=== PATIENT | female | born 1950 | race Caucasian/White ===

== ENCOUNTER 2021-11-05 05:24 | Outpatient (CLI) | payer MEDICARE | END 2021-11-05 05:25 | disposition EMS.NT | LOC: EMS 05:24 | DX: R07.89 Other chest pain (principal); R06.02 Shortness of breath; R29.0 Tetany ==

== ENCOUNTER 2022-07-16 07:26 | Emergency (ER) | payer MEDICARE ==
[2022-07-16] MEDS ORDERED: SODIUM CHLORIDE 0.9% 1,000 ML IV STA ×2 (07:52)
[2022-07-16] MEDS ORDERED: PROMETHAZINE INJ 25 MG in SODIUM CHLORIDE 0.9% 50 ML IV STA (07:52)
--- NOTE | 2022-07-16 07:55 | ED Physician Documentation ---
History of Present Illness - Stated complaint Stated Complaint: VOMITTING - Chief complaint Chief Complaint: Neuro - History obtained from History obtained from: Patient, Family - History of Present Illness Timing: Today Pain level max: 3 Pain level now: 3 - Additonal information Additional information: Patient is a 71-year-old female who comes to the emergency department accompanied by her today. She states that over the past 2 weeks she has had 3 episodes of emesis. She states that usually occurs after she takes her morning turmeric. She states she stopped taking this for about a week and the vomiting resolved, took it again this morning and had emesis. She states that during the vomiting episodes she is concerned that she might be passing out. She has no chest pain. No shortness of breath. No headache. No injuries. She is having epigastric discomfort. Nonradiating., Dull, aching. She states that she is not initially been constipated but feels like she is having some trouble with bowel movements. No urinary symptoms. No diarrhea. No blood in the vomit. She did recently start a new statin about 3 weeks ago as well. No recent travel. No recent surgeries. No recent antibiotics. Review of Systems Constitutional: denies: Fever, Chills Cardiac: denies: Chest pain / pressure, Palpitations Respiratory: denies: Cough GI: reports: Nausea, Vomiting. denies: Abdominal Pain, Diarrhea Skin: denies: Rash Musculoskeletal: denies: Neck pain, Back pain PD PAST MEDICAL HISTORY - Past Medical History Past Medical History: Yes Cardiovascular: Hypertension, High cholesterol Endocrine/Autoimmune: HyPOthyroidism - Present Medications Home Medications: Ambulatory Orders Medication Instructions Recorded Confirmed Amoxicillin 500 mg PO TID 7 Days #21 cap 11/04/21 HYDROcod/ACETAM 5/325 [[place] 5/325] 1 - 2 tablet PO Q6H PRN #14 tablet 11/04/21 Esomeprazole Magnesium [Nexium] 40 mg PO DAILY #30 cap 07/16/22 Famotidine [Pepcid] 20 mg PO BID #60 tablet 07/16/22 Ondansetron Odt [Zofran] 4 mg TL Q6H PRN #10 tablet 07/16/22 Sucralfate [Carafate] 1 gm PO ACHS #60 tablet 07/16/22 - Allergies Allergies/Adverse Reactions: Allergies Allergy/AdvReac Type Severity Reaction Status Date / Time Sulfa (Sulfonamide Allergy Rash Verified 07/16/22 07:37 Antibiotics) - Living Situation Living Situation: reports: With family Living Arrangement: reports: At home - Social History Does the pt smoke?: No Does the pt have substance abuse?: No PD ED PE NORMAL - Vitals Vital signs reviewed: Yes - General General: Alert and oriented X 3, No acute distress - HEENT HEENT: PERRL, Moist mucous membranes - Neck Neck: Supple, no meningeal sign - Cardiac Cardiac: RRR, No murmur, Strong equal pulses - Respiratory Respiratory: No respiratory distress, Clear bilaterally - Abdomen Abdomen: Soft, Non distended, Other (Tender to palpation epigastric without peritoneal signs. Otherwise benign exam) - Back Back: No CVA TTP, No spinal TTP - Derm Derm: Warm and dry - Extremities Extremities: No edema, No calf tenderness / cord - Neuro Neuro: Alert and oriented X 3 - Psych Psych: Normal mood, Normal affect Results - Vitals Vitals: Vital Signs - 24 hr 07/16/22 07/16/22 07/16/22 07:32 08:57 09:30 Temperature 36 C L Heart Rate 62 66 73 Respiratory 16 13 20 Rate Blood Pressure 107/80 120/69 109/69 O2 Saturation 98 95 100 Oxygen O2 Source Room air - EKG (time done) 0743 Rate: Rate (enter#) (82) Rhythm: NSR [place]: Normal Intervals: Normal ME QRS: Normal Ischemia: Normal ST segments - Labs Labs: Laboratory Tests 07/16/22 07/16/22 07/16/22 07:44 07:44 07:44 WBC 6.1 RBC 5.25 Hgb 15.6 Hct 49.2 H MCV 93.7 MCH 29.7 MCHC 31.7 L RDW 12.8 Plt Count 194 MPV 11.8 H Neut # (Auto) 3.8 Lymph # (Auto) 2.0 [place] # (Auto) 0.1 Eos # (Auto) 0.1 Baso # (Auto) 0.0 Absolute Nucleated RBC 0.00 Nucleated RBC % 0.0 Sodium 138 Potassium 4.3 Chloride 101 Carbon Dioxide 26 Anion Gap 11.0 BUN 19 Creatinine 0.9 Estimated GFR (MDRD) 62 L Glucose 163 H Calcium 9.8 Total Bilirubin 1.0 AST 39 ALT 46 Alkaline Phosphatase 74 Troponin I High Sens 5.0 Total Protein 8.3 H Albumin 4.7 Globulin 3.6 Albumin/Globulin Ratio 1.3 Lipase 54 H - Rads (name of study) Chest x-ray Radiology: Final report received, See rad report CT abdomen pelvis Radiology: Final report received, See rad report PD Medical Decision Making - ED course Complexity details: reviewed results, re-evaluated patient, considered differential, d/w patient ED course: 71-year-old female with emesis x3 over the past 10 days. CBC does not show any significant abnormalities. ER abdominal panel shows a mildly elevated glucose and a minimally elevated protein. She also has a minimally elevated lipase. Her high sensitive troponin is negative. CT scan consistent with gastritis. We will place on a PPI, H2 lissett and Carafate for home. Given IV Protonix here. Given GI cocktail. Given IV Phenergan. Tolerating p.o. without difficulty. Patient is well-appearing, nontoxic. Afebrile. No acute abnormalities on EKG, cardiac telemetry. Troponin is negative. Syncope likely related to vasovagal secondary to the emesis. Patient will follow-up with her doctor for further care. Recommend an endoscopy as an outpatient. Patient counseled regarding signs and symptoms for which I believe and urgent re-evaluation would be necessary. Patient with good understanding of and agreement to plan and is comfortable going home at this time This document was made in part using voice recognition software. While efforts are made to proofread this document, sound alike and grammatical errors may occur. Departure - Departure Disposition: 01 Home, Self Care Clinical Impression: Gastritis Qualifiers: Gastritis type: unspecified gastritis Chronicity: acute Gastritis bleeding: without bleeding Qualified Code(s): K29.00 - Acute gastritis without bleeding Condition: Good Instructions: ED PUD Vs Gastritis Follow-Up: ANNMARIE LYLES ARNP ([facility]) [Primary Care Provider] - Within 1 week Prescriptions: Sucralfate [Carafate] 1 gm PO ACHS #60 tablet Esomeprazole Magnesium [Nexium] 40 mg PO DAILY #30 cap Famotidine [Pepcid] 20 mg PO BID #60 tablet Ondansetron Odt [Zofran] 4 mg TL Q6H PRN #10 tablet PRN Reason: Nausea / Vomiting Comments: Your prescriptions were sent to [facility] in [place]. Your CT read is below. Please follow-up with your doctor for further care. It is recommended that you have an endoscopy to further evaluate your gastritis. We will start you on medications to help heal your stomach. Please return if you worsen. FINDINGS: Image quality: Excellent. ABDOMEN: Lung bases: Dependent atelectasis in posterior aspect of bilateral lung bases are seen. 4 mm pleural-based nodule in anterolateral aspect of right middle lobe is seen series 4 image 10. Heart size is mildly enlarged, no pericardial effusion. Small hiatal hernia is seen. Solid organs: Liver and spleen are normal in size and enhancement. Gallbladder is within normal limits. Biliary system is non dilated. Pancreas enhances normally. No adrenal nodules. Kidneys demonstrate normal size and enhancement, without hydronephrosis. Tiny bilateral renal cortical cysts are seen measures up to 7 mm in size in midpole of left kidney and 6 mm in size in lower pole of right kidney. Peritoneum and bowel: There is mild diffuse gastric wall thickening particularly involving distal stomach/pylorus. No gross small bowel or colon wall thickening. Sigmoid diverticulosis without pericolonic fat stranding or sigmoid colon wall thickening. No abscess collection. No free fluid of free air. Nodes and vessels: No retroperitoneal or mesenteric adenopathy by size criteria. Aorta and inferior vena cava are normal in size. Moderate atherosclerotic calcifications are seen throughout abdominal aorta and bilateral iliac arteries. Miscellaneous: No ventral hernias. PELVIS: Genitourinary: Bladder wall thickness is normal. Miscellaneous: No inguinal hernias or adenopathy. Bones: No suspicious bony lesions. No vertebral body compression fractures. Degenerative endplate changes are noted throughout lower thoracic and lumbar spine. Bilateral pars defects are noted at L5 level with grade 1 anterolisthesis of L5 on S1. IMPRESSION: 1. Small hiatal hernia with diffuse gastric wall thickening concerning for infectious or inflammatory gastritis suggest clinical correlation. No gross small bowel or colon wall thickening. No bowel obstruction. Colonic diverticulosis without evidence of acute diverticulitis. No free fluid of free air. 2. Bilateral small renal cortical cysts. No hydronephrosis or hydroureter. 3. Moderate atherosclerotic disease in the abdominal aorta. No aortic aneurysm. 4. Bilateral pars defect at L5 level with grade 1 anterolisthesis of L5 on S1. Degenerative disc disease throughout lumbar spine. 5. Incidentally noted of a 4 mm pleural-based nodule in right middle lobe. Bibasilar dependent atelectasis. Follow-up CT chest study can be done in 12 months for evaluation of stability. Discharge Date/Time: 07/16/22 10:01
[2022-07-16 07:58] LABS: BASOPHILS % (AUTO) 0.5 %; EOSINOPHILS # (AUTO) 0.1 10^3/uL (0.0-0.7); EOSINOPHILS % (AUTO) 0.8 %; HCT - HEMATOCRIT 49.2 % (37.0-47.0); HGB - HEMOGLOBIN 15.6 g/dL (12.0-16.0); LYMPHOCYTES % (AUTO) 33.3 %; MEAN CORPUSCULAR HEMOGLOBIN 29.7 pg (27.0-31.0); MEAN CORPUSCULAR HGB CONC 31.7 g/dL (32.0-36.0); MEAN CORPUSCULAR VOLUME 93.7 fL (81.0-99.0); MEAN PLATELET VOLUME 11.8 fL (7.9-10.8); MONOCYTES # (AUTO) 0.1 10^3/uL (0.0-1.0); MONOCYTES % (AUTO) 2.3 %; NEUTROPHILS # (AUTO) 3.8 10^3/uL (1.5-6.6); NEUTROPHILS % (AUTO) 62.9 %; PLT - PLATELET COUNT 194 10^3/uL (130-450); RED BLOOD COUNT 5.25 10^6/uL (4.20-5.40); RED CELL DISTRIBUTION WIDTH 12.8 % (12.0-15.0); WHITE BLOOD COUNT 6.1 x10^3/uL (4.8-10.8)
[2022-07-16 08:14] LABS: ALBUMIN 4.7 g/dL (3.2-5.5); ALBUMIN/GLOBULIN RATIO 1.3 (1.0-2.2); CALCIUM 9.8 mg/dL (8.5-10.3); CREATININE 0.9 mg/dL (0.4-1.0); POTASSIUM 4.3 mmol/L (3.5-5.0); TOTAL PROTEIN 8.3 g/dL (6.7-8.2)
[2022-07-16] MEDS ORDERED: iohexoL-300 100 ML VIAL ONE (08:14)
--- NOTE | 2022-07-16 08:19 | XRAY Report ---
PROCEDURE: Chest 1 View X-Ray INDICATIONS: Chest Pain TECHNIQUE: One view of the chest was acquired. COMPARISON: None. FINDINGS: Surgical changes and devices: None. Lungs and pleura: No pleural effusions or pneumothorax. Lungs are clear. Mediastinum: Mediastinal contours appear normal. Heart size is normal. Bones and chest wall: No suspicious bony lesions. Overlying soft tissues appear unremarkable. IMPRESSION: No acute cardiopulmonary pathology. Reviewed by: Gordo Badillo MD on 07/16/2022 8:18 AM [facility] Approved by: Gordo Badillo MD on 07/16/2022 8:18 AM [facility] Station ID: [id number]
[2022-07-16] MEDS ORDERED: iohexoL-300 100 ML VIAL IVP ONE (08:45)
--- NOTE | 2022-07-16 08:58 | CT Report ---
PROCEDURE: ABDOMEN/PELVIS W INDICATIONS: diffuse abd pain, vomiting CONTRAST: 100ml omni 300 TECHNIQUE: After the administration of IV contrast, 5 mm thick sections acquired from the diaphragms to the symp hysis. 5 mm thick coronal and sagittal reformats were acquired. For radiation dose reduction, the f ollowing was used: automated exposure control, adjustment of mA and/or kV according to patient size. COMPARISON: None. FINDINGS: Image quality: Excellent. ABDOMEN: Lung bases: Dependent atelectasis in posterior aspect of bilateral lung bases are seen. 4 mm pleural- based nodule in anterolateral aspect of right middle lobe is seen series 4 image 10. Heart size is mi ldly enlarged, no pericardial effusion. Small hiatal hernia is seen. Solid organs: Liver and spleen are normal in size and enhancement. Gallbladder is within normal almaguer its. Biliary system is non dilated. Pancreas enhances normally. No adrenal nodules. Kidneys demon strate normal size and enhancement, without hydronephrosis. Tiny bilateral renal cortical cysts are s een measures up to 7 mm in size in midpole of left kidney and 6 mm in size in lower pole of right kid junior. Peritoneum and bowel: There is mild diffuse gastric wall thickening particularly involving distal sto mach/pylorus. No gross small bowel or colon wall thickening. Sigmoid diverticulosis without pericolon ic fat stranding or sigmoid colon wall thickening. No abscess collection. No free fluid of free air. Nodes and vessels: No retroperitoneal or mesenteric adenopathy by size criteria. Aorta and inferior vena cava are normal in size. Moderate atherosclerotic calcifications are seen throughout abdominal aorta and bilateral iliac arteries. Miscellaneous: No ventral hernias. PELVIS: Genitourinary: Bladder wall thickness is normal. Miscellaneous: No inguinal hernias or adenopathy. Bones: No suspicious bony lesions. No vertebral body compression fractures. Degenerative endplate changes are noted throughout lower thoracic and lumbar spine. Bilateral pars defects are noted at L5 level with grade 1 anterolisthesis of L5 on S1. IMPRESSION: 1. Small hiatal hernia with diffuse gastric wall thickening concerning for infectious or inflammatory gastritis suggest clinical correlation. No gross small bowel or colon wall thickening. No bowel obst ruction. Colonic diverticulosis without evidence of acute diverticulitis. No free fluid of free air. 2. Bilateral small renal cortical cysts. No hydronephrosis or hydroureter. 3. Moderate atherosclerotic disease in the abdominal aorta. No aortic aneurysm. 4. Bilateral pars defect at L5 level with grade 1 anterolisthesis of L5 on S1. Degenerative disc dise ase throughout lumbar spine. 5. Incidentally noted of a 4 mm pleural-based nodule in right middle lobe. Bibasilar dependent atelec tasis. Follow-up CT chest study can be done in 12 months for evaluation of stability. Reviewed by: Gordo Badillo MD on 07/16/2022 8:57 AM PST Approved by: Gordo Badillo MD on 07/16/2022 8:57 AM PST Station ID: [id number]
[2022-07-16] MEDS ORDERED: SUCRALFATE 1 GM/10 ML UDC PO STA (09:09)
[2022-07-16] MEDS ORDERED: FAMOTIDINE 20 MG TABLET PO STA (09:09)
[2022-07-16] MEDS ORDERED: PANTOPRAZOLE 40 MG VIAL IVP STA (09:09)
[2022-07-16] MEDS ORDERED: MAG HYDROX/AL HYDROX/SIMETH 30 ML UDC PO STA (09:09)
[2022-07-16 09:58] VITALS: BP 109/69
== END 2022-07-16 10:01 | disposition home or self-care (01) ==
LOC: ED 07:26
DX: K29.00 Acute gastritis without bleeding (principal)
CPT/HCPCS: 36415; 71045; 74177; 80053; 83690; 84484; 85025; 93005; 96365; 96375; 99284; 99285; A9270; J7040; Q9967